=== PATIENT | female | born 1985 | race African-American/Black ===

== ENCOUNTER 2020-08-23 11:45 | Inpatient (IN) | payer BC ==
[2020-08-23 12:54] VITALS: BMI 32.3
[2020-08-23] MEDS ORDERED: ELECTROLYTE-148 SOLN 500 ML IV ONE (14:00)
[2020-08-23] MEDS ORDERED: ELECTROLYTE-148 SOLN 1,000 ML IV SCH (14:00)
[2020-08-23] MEDS ORDERED: CITRIC ACID/SODIUM CITRATE 30 ML UNIT-DOSE CUP PO ONE (14:00)
[2020-08-23] MEDS ORDERED: morphine SULFATE/PF 1 MG/2 ML (2cc Syringe - QUVA) EP ONE (15:08)
[2020-08-23] MEDS ORDERED: ONDANSETRON 4 MG/2 ML VIAL IVPUSH PRN (15:08)
[2020-08-23] MEDS ORDERED: morphine SULFATE/PF 1 MG/2 ML (2cc Syringe - QUVA) ONE (15:52)
[2020-08-23] MEDS ORDERED: ePHEDrine SULFATE 50 MG/1 ML AMPULE ONE ×2 (16:08→16:42)
[2020-08-23] MEDS ORDERED: ceFAZolin SODIUM 1 GM VIAL ONE (16:36)
[2020-08-23] MEDS ORDERED: OXYTOCIN 10 UNITS/ML VIAL ONE (16:36)
[2020-08-23] MEDS ORDERED: METHYLERGONOVINE MALEATE 0.2 MG/1 ML AMP IM PRN (17:14)
[2020-08-23] MEDS ORDERED: oxyCODONE HCL 5 MG TABLET PO PRN (17:14)
[2020-08-23] MEDS ORDERED: OXYTOCIN 20 UNITS in 0.9% NS 20 UNIT/1,000 ML INFUS.BAG IV SCH (17:15)
[2020-08-23] MEDS: IBUPROFEN 800 MG/8 ML IJ IVPB PRN (20:01)
[2020-08-23 21:22] LABS: HIV INTERPRETATION NEGATIVE (NEGATIVE)
[2020-08-24] MEDS: IBUPROFEN 800 MG/8 ML IJ IVPB PRN (06:16)
[2020-08-24] MEDS: PRENATAL VITAMINS W/ FOLIC ACID TABLET (FP) PO SCH (09:08)
[2020-08-24 09:30] LABS: BASO % 0.1 % (0-2.0); EOS % 0.4 % (0-4.5); HEMATOCRIT 32.9 % (32.4-45.2); HEMOGLOBIN 10.4 GM/dL (10.7-15.3); LYMPH % 9.7 % (8-40); MCH 23.5 pg (25.7-33.7); MCHC 31.8 g/dl (32.0-36.0); MEAN CELL VOLUME 73.8 fl (80-96); MEAN PLT VOLUME 7.6 fl (7.5-11.1); MONO % 5.7 % (3.8-10.2); NEUT % 84.1 % (42.8-82.8); PLATELET COUNT 279 K/MM3 (134-434); RBC 4.45 M/mm3 (3.60-5.2); WHITE BLOOD COUNT 11.6 K/mm3 (4.0-10.0)
[2020-08-24] MEDS: IBUPROFEN 600 MG TABLET (FP) PO PRN ×2 (12:50→22:28)
[2020-08-24] MEDS: ACETAMINOPHEN 325 MG TABLET (FP) PO PRN ×3 (12:51→22:28)
[2020-08-24] MEDS: SIMETHICONE 80 MG TAB.CHEW (FP) PO PRN ×3 (12:51→22:28)
[2020-08-24] MEDS: SENNOSIDES/DOCUSATE COMBO (SENNA PLUS) TABLET (UD) PO PRN (22:29)
[2020-08-25] MEDS: BISACODYL 10 MG SUPP.RECT RC PRN ×2 (00:34→17:43)
[2020-08-25] MEDS: SIMETHICONE 80 MG TAB.CHEW (FP) PO PRN ×3 (03:09→14:30)
[2020-08-25] MEDS: IBUPROFEN 600 MG TABLET (FP) PO PRN ×3 (03:09→14:30)
[2020-08-25] MEDS: oxyCODONE HCL 5 MG TABLET PO PRN ×2 (03:10→14:30)
[2020-08-25] MEDS: PRENATAL VITAMINS W/ FOLIC ACID TABLET (FP) PO SCH (09:25)
[2020-08-25] MEDS: ACETAMINOPHEN 325 MG TABLET (FP) PO PRN (09:26)
[2020-08-26] MEDS: SENNOSIDES/DOCUSATE COMBO (SENNA PLUS) TABLET (UD) PO PRN (01:26)
[2020-08-26] MEDS: SIMETHICONE 80 MG TAB.CHEW (FP) PO PRN ×3 (01:27→18:34)
[2020-08-26] MEDS: IBUPROFEN 600 MG TABLET (FP) PO PRN ×4 (01:28→21:55)
[2020-08-26] MEDS: ACETAMINOPHEN 325 MG TABLET (FP) PO PRN ×4 (01:28→21:55)
[2020-08-26] MEDS: PRENATAL VITAMINS W/ FOLIC ACID TABLET (FP) PO SCH (09:48)
[2020-08-26] MEDS: BISACODYL 10 MG SUPP.RECT RC PRN (12:38)
[2020-08-27 09:00] VITALS: BP 120/70; PULSE 80; TEMP 98.2
[2020-08-27] MEDS: PRENATAL VITAMINS W/ FOLIC ACID TABLET (FP) PO SCH (09:50)
== END 2020-08-27 15:30 | disposition home or self-care (01) | DRG 785 ==
LOC: JLDR 11:45 → J3W 19:32
PROVIDERS: ADMIT Obstetrics & Gynecology; ATTEND Obstetrics & Gynecology
PROC: 10D00Z1 Extraction of Products of Conception, Low, Open Approach (ICD-10-PCS; principal; 2020-08-23)
PROC: 0UL70ZZ Occlusion of Bilateral Fallopian Tubes, Open Approach (ICD-10-PCS; 2020-08-23)
DX: O34.211 Maternal care for low transverse scar from previous cesarean delivery (principal); Z30.2 Encounter for sterilization; Z3A.39 39 weeks gestation of pregnancy; Z37.0 Single live birth
CPT/HCPCS: 36415; 85025; 87389